=== PATIENT | male | born 1990 | race African-American/Black ===

== ENCOUNTER 2025-02-02 08:47 | Inpatient (IN) | payer MEDICAID ==
[~2025-02-02] VITALS: Ht 167.6 cm; Wt 64.4 kg
[~2025-02-02 08:47] MED LIST: ALBU90AE INH; NALO4SPR BOTHNSTRLS
[2025-02-02 12:20] LABS: BASOPHILS % 0.9 % (0.0-2.0); DIFFERENTIAL COMMENT 0; HEMATOCRIT. 38.2 % (42.0-52.0); HEMOGLOBIN. 12.4 g/dL (14.0-18.0); LYMPHOCYTES % 22.9 % (20.0-50.0); MEAN CORPUSCULAR HEMOGLOBIN 25.6 pg (28.0-32.0); MEAN CORPUSCULAR HGB CONC 32.5 g/dL (31.0-37.0); MONOCYTES % 9.8 % (2.0-8.0); NEUTROPHILS % 56.4 % (40.0-76.0); PLATELET 308 x1000/uL (130-400); RED BLOOD CELL COUNT 4.84 mill/uL (4.7-6.1); RED CELL DISTRIBUTION WIDTH 17.3 % (11.6-14.6); WHITE BLOOD COUNT 6.6 x1000/uL (4.5-11.0)
[2025-02-02 12:26] LABS: CHLORIDE 103 mEq/L (98-107); SODIUM 139 mEq/L (136-145)
[2025-02-02 12:27] LABS: CARBON DIOXIDE 28 mEq/L (21-32)
[2025-02-02 12:32] LABS: CREATININE 0.8 mg/dL (0.6-1.3); GLUCOSE 108 mg/dL (70-105); UREA NITROGEN BLOOD 12 mg/dL (9-23)
[2025-02-02] MEDS ORDERED: CEFEPIME 2GM IN DEXT 5% 100ML IV ONE (14:00)
[2025-02-02] MEDS ORDERED: VANCOMYCIN 1.5GM/250ML IV SCH (15:00)
[2025-02-02] MEDS ORDERED: CEFEPIME 2GM/50ML DUPLEX 50 ML IV SCH (15:00)
[2025-02-02] MEDS ORDERED: CEFEPIME 2,000MG in DEXT 5% WATER 100ML IV SCH (15:00)
[2025-02-02] MEDS ORDERED: IPRATROPIUM/ALBUTEROL 0.5-3(2.5)MG/3ML NEB NEB PRN (15:30)
[2025-02-02] MEDS ORDERED: ONDANSETRON HCL 4MG/2ML INJ IV PRN (15:30)
[2025-02-02] MEDS ORDERED: HYDROCODONE/ACETAMINOPHEN 5/325MG TABLET PO PRN (15:30)
[2025-02-02] MEDS ORDERED: MORPHINE SULFATE 4 MG/ML INJ (FOR IV/IM USE) IV PRN (15:30)
[2025-02-02] MEDS ORDERED: CLONIDINE 0.1MG TABLET PO PRN (15:30)
[2025-02-02] MEDS ORDERED: ACETAMINOPHEN 325MG TABLET PO PRN (15:30)
[2025-02-02] MEDS ORDERED: ZOLPIDEM TARTRATE 5MG TABLET PO PRN (15:30)
[2025-02-02] MEDS: SODIUM CHLORIDE 0.9% 1,000 ML IV SCH (16:09)
[2025-02-02] MEDS ORDERED: NALOXONE HCL 0.4MG/ML VIAL IV PRN (16:30)
[2025-02-02 17:30] VITALS: BP 108/76; PULSE 76; RESP 16; TEMP 36.7
[2025-02-02] MEDS: VANCOMYCIN 1.25GM/250ML IV SCH (18:57)
[2025-02-02] MEDS: ENOXAPARIN 40MG/0.4ML SYR SUBCUT SCH (18:58)
[2025-02-02 20:00] VITALS: BP 118/60; PULSE 68; RESP 18; TEMP 36.2; O2SAT 100
[2025-02-02] MEDS: PIPERACILLIN/TAZO 3.375G/50ML 50 ML IV SCH (21:30)
[2025-02-03] VITALS: BP 115/77; PULSE 73; RESP 18; TEMP 36.5; O2SAT 97
[2025-02-03] MEDS: VANCOMYCIN 1GM PMX (XELLIA) 200 ML IV SCH (02:30)
[2025-02-03 08:00] VITALS: BP 119/86; PULSE 62; RESP 18; TEMP 36.4
[2025-02-03] MEDS ORDERED: TETANUS, DIPHTHERIA, PERTUSSIS VAC/PF 0.5ML (>10YR OLD) IM ONE (08:00)
[2025-02-03] MEDS: PANTOPRAZOLE SODIUM 40 MG/VIAL IV SCH (09:00)
[2025-02-03 10:16] LABS: BASOPHILS % 0.7 % (0.0-2.0); DIFFERENTIAL COMMENT 0; EOSINOPHILS % 11.3 % (0.0-5.0); HEMATOCRIT. 38.8 % (42.0-52.0); HEMOGLOBIN. 12.9 g/dL (14.0-18.0); LYMPHOCYTES % 21.4 % (20.0-50.0); MEAN CORPUSCULAR HEMOGLOBIN 26.2 pg (28.0-32.0); MEAN CORPUSCULAR HGB CONC 33.2 g/dL (31.0-37.0); MEAN CORPUSCULAR VOLUME 78.9 fL (80.0-94.0); MONOCYTES % 8.3 % (2.0-8.0); NEUTROPHILS % 58.3 % (40.0-76.0); PLATELET 305 x1000/uL (130-400); RED BLOOD CELL COUNT 4.93 mill/uL (4.7-6.1); RED CELL DISTRIBUTION WIDTH 17.1 % (11.6-14.6); WHITE BLOOD COUNT 5.8 x1000/uL (4.5-11.0)
[2025-02-03 10:34] LABS: CALCIUM 8.9 mg/dL (8.7-10.4); CHLORIDE 100 mEq/L (98-107); POTASSIUM 4.1 mEq/L (3.5-5.1); SODIUM 135 mEq/L (136-145)
[2025-02-03 10:35] LABS: CARBON DIOXIDE 27 mEq/L (21-32)
[2025-02-03 10:41] LABS: CREATININE 0.8 mg/dL (0.6-1.3); GLUCOSE 112 mg/dL (70-105); UREA NITROGEN BLOOD 8 mg/dL (9-23)
[2025-02-03] MEDS: VANCOMYCIN 500MG PREMIX 100 ML IV SCH (10:55)
[2025-02-03] MEDS: LIDOCAINE HCL/EPINEPHRINE 1%-EPI 1:100,000 20ML VIAL INFIL SCH (12:12)
[2025-02-03 12:28] LABS: HEPATITIS B SURFACE ANTIGEN NEGATIVE (Negative)
[2025-02-03 12:49] LABS: HEPATITIS C AB NON REACTIVE (Neg) (Negative)
[2025-02-03] MEDS ORDERED: AMOX1TAB16 MT (15:12)
[2025-02-03] MEDS ORDERED: SULF1TAB44 MT (15:12)
[2025-02-03 16:00] VITALS: BP 122/71; PULSE 67; RESP 18; TEMP 36.8; O2SAT 97
[2025-02-03 18:15] VITALS: BP 122/71; PULSE 67; TEMP 98.2; O2SAT 97
[2025-02-03] MEDS ORDERED: VANCOMYCIN 1.5GM PMX (XELLIA) 300 ML IV SCH (21:00)
[2025-02-03] MEDS ORDERED: SODIUM HYPOCHLORITE 0.125% 473ML SOLUTION TOP SCH (21:00)
== END 2025-02-03 20:25 | disposition home or self-care (01) | DRG 710 ==
LOC: ER 08:47 → EDBEDREQ 14:29 → 8EST 17:02
PROVIDERS: ADMIT Internal Medicine; ATTEND Internal Medicine
PROC: 0JBK0ZZ Excision of Left Hand Subcutaneous Tissue and Fascia, Open Approach (ICD-10-PCS; principal; 2025-02-03)
DX: A41.9 Sepsis, unspecified organism (principal); J45.909 Unspecified asthma, uncomplicated; L03.012 Cellulitis of left finger; L02.512 Cutaneous abscess of left hand; M65.88 Other synovitis and tenosynovitis, other site; Z79.899 Other long term (current) drug therapy
CPT/HCPCS: 36415; 73130; 80048; 85025; 86705; 87070; 87075; 87077; 87186; 87340; 90715; 93970; 99291; J0692; J1650; J2004; J2470; J2543; J3370; J7060